=== PATIENT | male | born 1960 | race Caucasian/White ===

== ENCOUNTER → 2019-10-25 | Outpatient (CLI) | payer OTHER ==
[~2019-10-25] MED LIST: IBUPROFEN200 M1 PO; LORTAB 5/500 501 TAB PO
== END ==
LOC: MHCPAIN 15:03
DX: M47.26 Other spondylosis with radiculopathy, lumbar region (principal); G89.29 Other chronic pain; E11.9 Type 2 diabetes mellitus without complications; Z79.84 Long term (current) use of oral hypoglycemic drugs
CPT/HCPCS: G0463